=== PATIENT | female | born 1955 | race Hispanic/Latino ===

== ENCOUNTER 2017-09-29 11:09 | Outpatient (CLI) | payer OTHER | END 2017-09-29 11:10 | disposition home or self-care (01) | LOC: BICMAMMO 11:09 | PROVIDERS: ATTEND Physician Assistant | DX: Z12.31 Encounter for screening mammogram for malignant neoplasm of breast (principal); Z80.3 Family history of malignant neoplasm of breast | CPT/HCPCS: 77063; 77067 ==

== ENCOUNTER 2017-10-03 13:14 | Outpatient (CLI) | payer OTHER | END 2017-10-03 13:15 | disposition home or self-care (01) | LOC: BICMAMMO 13:14 | PROVIDERS: ATTEND Physician Assistant | DX: N63.10 Unspecified lump in the right breast, unspecified quadrant (principal); Z80.3 Family history of malignant neoplasm of breast | CPT/HCPCS: G0279 ==

== ENCOUNTER 2018-05-01 14:35 | Outpatient (CLI) | payer OTHER | END 2018-05-01 14:36 | disposition home or self-care (01) | LOC: BICMAMMO 14:35 | PROVIDERS: ATTEND Physician Assistant | DX: R92.8 Other abnormal and inconclusive findings on diagnostic imaging of breast (principal); N63.12 Unspecified lump in the right breast, upper inner quadrant; Z80.3 Family history of malignant neoplasm of breast | CPT/HCPCS: G0279 ==

== ENCOUNTER 2018-11-13 09:40 | Outpatient (CLI) | payer OTHER ==
--- NOTE | 2018-11-13 10:28 | MMO ---
Bilateral MAMMO Bilat Diag [facility]. CLINICAL HISTORY: Patient is 63 years old and is seen for diagnostic exam. The patient has the following family history of breast cancer: mother; sister and brother. The patient has no personal history of cancer. VIEWS: The views performed were: bilateral craniocaudal with tomosynthesis; bilateral mediolateral oblique with tomosynthesis; and bilateral mediolateral with tomosynthesis. FILMS COMPARED: The present examination has been compared to prior imaging studies performed at [facility] on 09/29/2017, 10/03/2017 and 05/01/2018. MAMMOGRAM FINDINGS: There are scattered fibroglandular densities. Stable 6 mm nodule in the upper inner right breast. In the left breast, there are no suspicious masses, calcifications or areas of architectural distortion. IMPRESSION: FINDING IN THE RIGHT BREAST IS PROBABLY BENIGN. FOLLOW-UP IN 6 MONTHS IS RECOMMENDED. SIX MONTH FOLLOW UP RIGHT BREAST MAMMOGRAM. THE RESULTS OF THIS EXAM WERE SENT TO THE PATIENT. ACR BI-RADS Category 3 - Probably benign finding - short interval follow-up suggested. [facility] will notify the patient of the need for additional imaging services. MAMMOGRAPHY NOTE: 1. A negative mammogram report should not delay a biopsy if a dominant of clinically suspicious mass is present. 2. Approximately 10% to 15% of breast cancers are not detected by mammography. 3. Adenosis and dense breasts may obscure an underlying neoplasm. Reported by: MELODIE DOLAN MD Electonically Signed: [id number]
== END 2018-11-13 09:41 | disposition home or self-care (01) ==
LOC: BICMAMMO 09:40
PROVIDERS: ATTEND Family Medicine
DX: R92.8 Other abnormal and inconclusive findings on diagnostic imaging of breast (principal); Z80.3 Family history of malignant neoplasm of breast
CPT/HCPCS: 77066; G0279

== ENCOUNTER 2019-09-27 14:41 | Outpatient (CLI) | payer MEDICARE ==
--- NOTE | 2019-09-27 15:47 | MMO ---
Bilateral MAMMO Bilat Diag [facility]. CLINICAL HISTORY: Patient is 64 years old and is seen for diagnostic exam. The patient has the following family history of breast cancer: mother; sister and brother. The patient has no personal history of cancer. VIEWS: The views performed were: bilateral mediolateral with tomosynthesis; bilateral craniocaudal with tomosynthesis; bilateral mediolateral oblique with tomosynthesis; and left craniocaudal. FILMS COMPARED: The present examination has been compared to prior imaging studies performed at [facility] on 09/29/2017, 10/03/2017, 05/01/2018 and 11/13/2018. This study has been interpreted with the assistance of computer-aided detection. MAMMOGRAM FINDINGS: There are scattered fibroglandular densities. Benign calcifications are noted bilaterally. 6mm nodule in the upper inner right breast is stable. There are no suspicious masses, suspicious calcifications, or new areas of architectural distortion. IMPRESSION: THERE IS NO MAMMOGRAPHIC EVIDENCE OF MALIGNANCY. A ROUTINE FOLLOW-UP MAMMOGRAM IN 1 YEAR IS RECOMMENDED. THE RESULTS OF THIS EXAM WERE SENT TO THE PATIENT. ACR BI-RADS Category 2 - Benign finding MAMMOGRAPHY NOTE: 1. A negative mammogram report should not delay a biopsy if a dominant of clinically suspicious mass is present. 2. Approximately 10% to 15% of breast cancers are not detected by mammography. 3. Adenosis and dense breasts may obscure an underlying neoplasm. Reported by: GUILLAUME RADFORD MD Electonically Signed: [id number]
== END 2019-09-27 14:42 | disposition home or self-care (01) ==
LOC: BICMAMMO 14:41
PROVIDERS: ATTEND Family Medicine
DX: R92.8 Other abnormal and inconclusive findings on diagnostic imaging of breast (principal)
CPT/HCPCS: 77066; G0279

== ENCOUNTER 2019-11-10 12:43 | Outpatient (CLI) | payer MEDICARE | END 2019-11-10 12:44 | disposition home or self-care (01) | LOC: DTY/OP 12:43 | PROVIDERS: ATTEND Surgery | DX: E66.01 Morbid (severe) obesity due to excess calories (principal) | CPT/HCPCS: 97802 ==

== ENCOUNTER 2020-01-03 06:40 | Outpatient (CLI) | payer MEDICARE, OTHER ==
--- NOTE | 2020-01-03 14:53 | RAD ---
EXAM: Chest PA and lateral: HISTORY: Preoperative exam. COMPARISON: 07/29/2004 FINDINGS: Heart: Normal cardiac silhouette Aorta: Atherosclerotic Pulmonary vessels: Normal Costophrenic angles: Costophrenic angles are clear. Lungs: No consolidation or masses. Pneumothorax: No pneumothorax Osseous structures: No osseous abnormalities Incidentals: Tubing and a reservoir from the gastric lap band are identified. IMPRESSION: No acute cardiopulmonary process. Atherosclerosis.
[2020-01-03 16:32] LABS: #Basophils 0.1 thou/uL (0.0-0.2); #Eosinphils 0.1 thou/uL (0.0-0.7); #Monocytes 0.5 thou/uL (0.11-0.59); #Neutrophils 2.8 thou/uL (1.40-6.50); %Basophils 1.4 % (0.0-1.0); %Lymphocytes 46.9 % (21.0-51.0); %Monocytes 7.6 % (0.0-10.0); %Neutrophils 43.2 % (42.0-75.0); Hemoglobin 13.5 g/dL (12.0-16.0); Mean Corpuscular HGB CONC 33.5 g/dL (32.0-36.0); Mean Corpuscular Hemoglobin 31.6 pg (27.0-31.0); Mean Corpuscular Volume 94.3 fL (78.0-98.0); Mean Platelet Volume 7.6 fL (7.4-10.4); Platelet Count 240 thou/uL (130-400); RBC Distribution Width 12.3 % (11.5-14.5); Red Blood Cell (RBC) Count 4.28 mill/uL (4.20-5.40); White Blood Cell (WBC) Count 6.4 thou/uL (4.8-10.8)
[2020-01-03 16:44] LABS: Hemoglobin A1c 5.1 % (4.0-6.0)
[2020-01-03 17:02] LABS: ALT (SGPT) 13 U/L (8-55); AST (SGOT) 18 U/L (5-34); Albumin 3.9 g/dL (3.4-4.8); Alkaline Phosphatase 70 U/L (40-110); Anion Gap 13 mmol/L (10-20); BUN (Urea Nitrogen) 20 mg/dL (9.8-20.1); Bilirubin, Total 0.3 mg/dL (0.2-1.2); Calc. Creatinine Clearance 0 mL/min (70-130); Calcium 9.1 mg/dL (7.8-10.44); Carbon Dioxide 27 mmol/L (23-31); Chloride 101 mmol/L (98-107); Estimated GFR-MDRD 88; Globulin 3.1 g/dL (2.4-3.5); Glucose 78 mg/dL (80-115); Sodium 137 mmol/L (136-145)
[2020-01-04 11:35] LABS: SARS-CoV-2 MS2 Positive; SARS-CoV-2 N Gene Negative; SARS-CoV-2 S Gene Negative; SARS-CoV-2 by NAA Not Detected (NotDetected); SARS-CoV-2 orf1ab Negative
--- NOTE | 2020-01-04 14:58 | EKG ---
Test Reason : PREOP Blood Pressure : / mmHG Vent. Rate : 060 BPM Atrial Rate : 060 BPM P-R Int : 124 ms QRS Dur : 100 ms QT Int : 418 ms P-R-T Axes : 072 -36 048 degrees QTc Int : 418 ms Normal sinus rhythm Left axis deviation Abnormal ECG Confirmed by BEATRICE DIETZ (2) on 01/04/2020 2:58:33 PM Referred By: Nghia LORD Confirmed By:BEATRICE DIETZ
== END 2020-01-03 06:41 | disposition home or self-care (01) ==
LOC: LABBT 06:40 → SCSRAD 06:41
PROVIDERS: ATTEND Surgery
DX: Z01.818 Encounter for other preprocedural examination (principal); I70.0 Atherosclerosis of aorta; Z20.828 Contact with and (suspected) exposure to other viral communicable diseases
CPT/HCPCS: 71046; 80053; 83036; 85025; 87635; 93005; 93010; U0003

== ENCOUNTER 2020-01-03 14:30 | Inpatient (IN) | payer MEDICARE, OTHER ==
[2020-01-05 14:24] VITALS: BMI 35.5
[2020-01-06] MEDS ORDERED: Dexamethasone 20 MG/5 ML VIAL ONE (11:04)
[2020-01-06] MEDS ORDERED: EPHEDRINE 25 MG/5 ML SYRINGE ONE (11:04)
[2020-01-06] MEDS ORDERED: Metoclopramide HCl 10 MG/2 ML VIAL ONE (11:04)
[2020-01-06] MEDS ORDERED: Lidocaine 1% PF 5 ML VIAL ONE (11:04)
[2020-01-06] MEDS ORDERED: Ondansetron PF 4 MG/2 ML Vial ONE ×2 (11:04→13:39)
[2020-01-06] MEDS ORDERED: PROPOFOL 200 MG/20 ML VIAL ONE (11:04)
[2020-01-06] MEDS ORDERED: Ketorolac Tromethamine 30 MG/ML VIAL ONE (11:04)
[2020-01-06] MEDS ORDERED: Rocuronium Bromide 10 MG/ML (10ML VIAL) ONE (11:04)
[2020-01-06] MEDS ORDERED: PHENYLEPHRINE-NS 100 MCG/ML 10 ML SYRINGE ONE (11:04)
[2020-01-06] MEDS ORDERED: Bupivacaine/Epinephrine 0.25% 30 ML VIAL ONE (11:19)
[2020-01-06] MEDS ORDERED: Fentanyl 100 MCG/2 ML VIAL ONE ×3 (11:21→13:50)
[2020-01-06] MEDS ORDERED: Heparin 5,000 UNITS/ML VIAL ONE (11:33)
[2020-01-06] MEDS ORDERED: Famotidine/PF 20 mg/2ml Vial ONE (11:34)
[2020-01-06] MEDS ORDERED: Ondansetron HCl/PF 4 MG/2 ML Vial IVP PRN (13:02)
[2020-01-06] MEDS ORDERED: PACU-Morphine 4MG/ML VIAL SLOW IVP PRN (13:02)
[2020-01-06] MEDS ORDERED: Meperidine HCl/PF 25 MG/ML VIAL SLOW IVP PRN (13:02)
[2020-01-06] MEDS ORDERED: Promethazine HCl 25 MG/ML VIAL SLOW IVP PRN (13:02)
[2020-01-06] MEDS ORDERED: Promethazine HCl 25 MG/ML VIAL IM PRN ×3 (13:02→13:45)
[2020-01-06] MEDS ORDERED: Hydrocodone-Acetamin 15 ML UDCUP PO PRN (13:18)
[2020-01-06] MEDS ORDERED: Dextrose 5% in Water 1,000 ML IV PRN (13:18)
[2020-01-06] MEDS ORDERED: diphenhydrAMINE 50 MG/ML VIAL IVP PRN (13:18)
[2020-01-06] MEDS ORDERED: Dextrose 50% Abboject 50 ML SYRINGE SLOW IVP PRN (13:18)
[2020-01-06] MEDS ORDERED: Ondansetron PF 4 MG/2 ML Vial IVP PRN ×2 (13:18→13:45)
[2020-01-06] MEDS ORDERED: hydrALAZINE 20 MG/ML VIAL SLOW IVP PRN (13:18)
[2020-01-06] MEDS ORDERED: Zolpidem Tartrate 5 MG TAB PO PRN (13:45)
[2020-01-06] MEDS ORDERED: diphenhydrAMINE 50 MG/ML VIAL IM/IV PRN (13:45)
[2020-01-06] MEDS ORDERED: diphenhydrAMINE 25 MG CAP PO PRN (13:45)
[2020-01-06] MEDS ORDERED: Naloxone HCl 0.4 mg/ml Vial IV PRN (13:45)
[2020-01-06] MEDS ORDERED: fentaNYL Citrate/PF 2,000 MCG in Sodium Chloride 0.9% 60 ML IV PRN (13:45)
--- NOTE | 2020-01-06 14:18 | OP ---
DATE OF PROCEDURE: 01/06/2020 PREOPERATIVE DIAGNOSIS: Morbid obesity with lap band intolerance. PROCEDURES PERFORMED: 1. Laparoscopic removal of lap band and port with sleeve gastrectomy. 2. Intraoperative esophagogastroscopy. INDICATIONS: This is a 64-year-old female, morbidly obese, who had a lap band placed about 13 years ago. Initially did well, but developed severe reflux, had to have the band decompressed and did not tolerate any further fills. FINDINGS: Very dense adhesions. She had an open cholecystectomy, and her upper abdomen was socked in with adhesions, so I had to take those down. A 38-Iraqi bougie was used. DESCRIPTION OF PROCEDURE: After informed consent was obtained, the patient was taken to the operating room, given general endotracheal anesthesia, placed in supine position. Abdomen was prepped and draped in the usual fashion. Local anesthesia was infiltrated subcutaneously and deep, and a 12-mm incision was performed approximately 8 inches below the xiphoid, slightly to the left. Veress needle inserted. Drop test performed. Pneumoperitoneum was created to a volume of 2 L of carbon dioxide. Utilizing a bladeless 12-mm trocar and 0-degree laparoscope, direct visual entry into the abdominal cavity was performed. Pneumoperitoneum was then created to a pressure of 15 mmHg. A 0-degree laparoscope inserted and there were extreme dense adhesions, so another 12-mm port was placed left subcostal and a laparoscopic lysis of adhesion was performed utilizing Metzenbaum scissors as well as the LigaSure. I was able to free up the anterior abdominal wall over to the right and then inserted a laparoscopic liver retractor. The Jody liver retractor inserted. Left lobe of the liver retracted superiorly. The pylorus was identified. A 12-mm port placed on the right beneath it and another 12 mm port placed left upper quadrant where the port was. The lap band tubing was divided and then traced down to the buckle. The buckle was dissected out utilizing electrocautery as well as Metzenbaum scissors as well as the LigaSure. The buckle was unbuckled and the capsule incised circumferentially. Then, the lap band was removed from around the stomach and removed from the abdomen. Hemostasis was assured. The omentum was taken off the greater curvature, 5 cm from the pylorus, utilizing the LigaSure. Short gastrics divided with LigaSure. Left crura defined with LigaSure. The 38-Iraqi bougie inserted, directed into the antrum. The linear 60-mm green load stapler with Ethicon staple reinforcements used to divide the antrum to bougie, gold load along the bougie, actually 3 gold loads because of the thick nature of the stomach, then a final blue. Intraoperative endoscopy was performed. The video endoscope was inserted under direct vision, advanced into the sleeve. Staple line inspected. There was no bleeding. Staple line then tested by inflating the new stomach with pressurized air under water and there was no air leak. Stomach decompressed. Scope removed. The remnant stomach removed from the abdomen through the left lateral port site. The fascia closed with 0 Vicryl suture in the GraNee needle. At this point, the skin incision was enlarged where the port was and the port was removed intact. Hemostasis was assured. Subcu reapproximated with interrupted 3-0 Vicryl. Hemostasis was assured. Trocars and retractors removed. Skin closed with interrupted 4-0 Rapide. Dermabond applied. The patient tolerated the procedure well, transferred to Recovery in good condition. Sponge and needle count verified correct x2. Job ID: [id number]
[2020-01-06] MEDS: D5 1/2 NS w/20 mEq KCL 1,000 ML IV SCH ×2 (16:48→23:21)
[2020-01-06] MEDS: CEFAZOLIN 2 GM in Premix Bag 1 BAG IVPB SCH (16:49)
[2020-01-06] MEDS: Ketorolac Tromethamine 30 MG/ML VIAL IVP SCH ×2 (16:56→23:21)
[2020-01-06] MEDS ORDERED: Ketorolac Tromethamine 30 MG/ML VIAL IVP SCH (18:00)
[2020-01-07] MEDS: CEFAZOLIN 2 GM in Premix Bag 1 BAG IVPB SCH (01:05)
[2020-01-07] MEDS: Ketorolac Tromethamine 30 MG/ML VIAL IVP SCH (05:05)
[2020-01-07 05:34] LABS: #Basophils 0.1 thou/uL (0.0-0.2); #Monocytes 0.7 thou/uL (0.11-0.59); #Neutrophils 4.9 thou/uL (1.40-6.50); %Basophils 0.8 % (0.0-1.0); %Eosinophils 0.2 % (0.0-10.0); %Lymphocytes 26.4 % (21.0-51.0); %Monocytes 8.8 % (0.0-10.0); %Neutrophils 63.8 % (42.0-75.0); Hemoglobin 11.2 g/dL (12.0-16.0); Mean Corpuscular HGB CONC 33.6 g/dL (32.0-36.0); Mean Corpuscular Hemoglobin 31.9 pg (27.0-31.0); Mean Corpuscular Volume 94.9 fL (78.0-98.0); Mean Platelet Volume 7.3 fL (7.4-10.4); Platelet Count 221 thou/uL (130-400); RBC Distribution Width 12.2 % (11.5-14.5); White Blood Cell (WBC) Count 7.7 thou/uL (4.8-10.8)
[2020-01-07 05:51] LABS: Anion Gap 8 mmol/L (10-20); BUN (Urea Nitrogen) 13 mg/dL (9.8-20.1); Calc. Creatinine Clearance 128 mL/min (70-130); Calcium 7.9 mg/dL (7.8-10.44); Carbon Dioxide 29 mmol/L (23-31); Chloride 103 mmol/L (98-107); Estimated GFR-MDRD 85; Glucose 173 mg/dL (80-115); Sodium 136 mmol/L (136-145)
[2020-01-07] MEDS: D5 1/2 NS w/20 mEq KCL 1,000 ML IV SCH (06:17)
--- NOTE | 2020-01-07 08:07 | RAD ---
Exam: Gastrografin 15 mL swallow HISTORY: Status post bariatric surgery. Postop day 1 for gastric sleeve Exposure: 1.1 minute. 54.192 harding per centimeter square FINDINGS: Patient was administered 15 cc of Gastrografin. Gastrografin passed without difficulty into the stomach. No leak or extravasation IMPRESSION: No leak or extravasation.
[2020-01-07] MEDS ORDERED: Pantoprazole 40 MG VIAL IVP SCH (09:00)
[2020-01-07] MEDS ORDERED: FLU VACC QS2020-21(65YR UP)/PF 240 MCG/0.7 ML SYRINGE IM ONE (09:00)
[2020-01-07] MEDS ORDERED: Enoxaparin Sodium 40 MG/0.4 ML SYRINGE SC SCH (09:00)
[2020-01-07 10:57] VITALS: BP 128/71; TEMP 97.6
[2020-01-07] MEDS ORDERED: GASTROGRAFIN 30 ML BOT ONE (12:00)
--- NOTE | 2020-01-10 07:38 | DIS ---
DATE OF ADMISSION: 01/06/2020 DATE OF DISCHARGE: 01/07/2020 DISCHARGE DIAGNOSIS: Morbid obesity with band intolerance. PROCEDURES DURING ADMISSION: Laparoscopic removal of lap band, sleeve gastrectomy. HOSPITAL COURSE: The patient was admitted, taken to the operating room where she underwent removal of the lap band and sleeve. Postoperatively, she has done well. Her pain is well controlled. She is tolerating liquids. X-ray is fine. She is discharged home on hydrocodone and Zofran. Follow up with me in 2 weeks. Job ID: [id number]
== END 2020-01-07 12:15 | disposition home or self-care (01) | DRG 621 ==
LOC: SURG A 01-06 09:29 → SURG B 01-06 14:40
PROVIDERS: ADMIT Surgery; ATTEND Surgery
PROC: 0DB64Z3 Excision of Stomach, Percutaneous Endoscopic Approach, Vertical (ICD-10-PCS; principal; 2020-01-06)
PROC: 0DP64CZ Removal of Extraluminal Device from Stomach, Percutaneous Endoscopic Approach (ICD-10-PCS; 2020-01-06)
PROC: 0DNW4ZZ Release Peritoneum, Percutaneous Endoscopic Approach (ICD-10-PCS; 2020-01-06)
PROC: 0DJ08ZZ Inspection of Upper Intestinal Tract, Via Natural or Artificial Opening Endoscopic (ICD-10-PCS; 2020-01-06)
PROC: 3E02340 Introduction of Influenza Vaccine into Muscle, Percutaneous Approach (ICD-10-PCS; 2020-01-07)
DX: E66.01 Morbid (severe) obesity due to excess calories (principal); I10 Essential (primary) hypertension; E78.5 Hyperlipidemia, unspecified; Z23 Encounter for immunization; K66.0 Peritoneal adhesions (postprocedural) (postinfection); Z68.35 Body mass index [BMI] 35.0-35.9, adult; Z90.49 Acquired absence of other specified parts of digestive tract
CPT/HCPCS: 36415; 71046; 74240; 80048; 80053; 83036; 85025; 87635; 88307; 88312; 90471; 90662; 90732; 93005; C9113; G0008; G0009; J0690; J1100; J1644; J1650; J1885; J2405; J2704; J2765; J3010; J3480; Q9963; S0028; U0003

== ENCOUNTER 2020-10-30 14:08 | Outpatient (CLI) | payer MEDICARE | END 2020-10-30 14:09 | disposition home or self-care (01) | LOC: BICMAMMO 14:08 | PROVIDERS: ATTEND Physician Assistant | DX: Z12.31 Encounter for screening mammogram for malignant neoplasm of breast (principal); Z80.3 Family history of malignant neoplasm of breast | CPT/HCPCS: 77063; 77067 ==

== ENCOUNTER 2021-08-21 14:20 | Outpatient (CLI) | payer MEDICARE | END 2021-08-21 14:21 | disposition home or self-care (01) | LOC: ULT 14:20 | PROVIDERS: ATTEND Physician Assistant | DX: H35.82 Retinal ischemia (principal) | CPT/HCPCS: 93880 ==

== ENCOUNTER 2021-10-31 12:48 | Outpatient (CLI) | payer MEDICARE | END 2021-10-31 12:49 | disposition home or self-care (01) | LOC: BICMAMMO 12:48 | PROVIDERS: ATTEND Physician Assistant | DX: Z12.31 Encounter for screening mammogram for malignant neoplasm of breast (principal); Z80.3 Family history of malignant neoplasm of breast | CPT/HCPCS: 77063; 77067 ==

== ENCOUNTER 2023-12-18 15:21 | Outpatient (CLI) | payer MEDICARE | END 2023-12-18 15:22 | disposition home or self-care (01) | LOC: BICMAMMO 15:21 | PROVIDERS: ATTEND Family Medicine | DX: Z12.31 Encounter for screening mammogram for malignant neoplasm of breast (principal); Z80.3 Family history of malignant neoplasm of breast | CPT/HCPCS: 77063; 77067 ==

== ENCOUNTER 2024-12-20 14:47 | Outpatient (CLI) | payer MEDICARE | END 2024-12-20 14:48 | disposition home or self-care (01) | LOC: BICMAMMO 14:47 | PROVIDERS: ATTEND Family Medicine | DX: Z12.31 Encounter for screening mammogram for malignant neoplasm of breast (principal); Z80.3 Family history of malignant neoplasm of breast | CPT/HCPCS: 77063; 77067 ==